=== PATIENT | female | born 1965 | race Hispanic/Latino ===

== ENCOUNTER 2022-01-25 16:04 | Emergency (ER) | payer MEDICARE ==
[~2022-01-25] VITALS: Ht 154.9 cm; Wt 66.4 kg
[2022-01-25 16:44] LABS: BASOPHILS % 0.3 % (0.0-1.0); EOSINOPHILS # (AUTO) 0.4 (0.0-0.4); HEMATOCRIT 32.9 % (34.2-44.1); HEMOGLOBIN 10.4 g/dL (12.0-16.0); LYMPHOCYTES # (AUTO) 2.8 (1.0-3.2); LYMPHOCYTES % 22.8 % (18.0-39.1); MEAN CORPUSCULAR HEMOGLOBIN 30.9 pg (28-32); MEAN CORPUSCULAR HGB CONC 31.6 g/dL (31-35); MEAN CORPUSCULAR VOLUME 97.6 fL (81-99); MONOCYTES % 8.4 % (4.4-11.3); NEUTROPHILS # (AUTO) 7.9 (2.1-6.9); NEUTROPHILS % 64.6 % (38.7-80.0); PLATELET COUNT 299 x10e3/uL (140-360); RED BLOOD COUNT 3.37 x10e6/uL (3.6-5.1); RED CELL DISTRIBUTION WIDTH 14.7 % (11.7-14.4)
[2022-01-25 16:53] LABS: INR 0.97; PARTIAL THROMBOPLASTIN TIME 27.9 seconds (23.8-35.5); PROTHROMBIN TIME 13.8 seconds (11.9-14.5)
[2022-01-25 16:59] LABS: ALBUMIN 2.3 g/dL (3.5-5.0); ALBUMIN/GLOBULIN RATIO 0.5 (0.8-2.0); ANION GAP 17.2 mmol/L (8-16); CALCIUM 7.6 mg/dL (8.4-10.2); CREATININE, SERUM 5.43 mg/dL (0.57-1.11); POTASSIUM 5.2 mmol/L (3.5-5.1)
[2022-01-25 17:00] LABS: AMYLASE 45 U/L (25-125); LIPASE 37 U/L (8-78)
[2022-01-25] MEDS ORDERED: AUGMENTIN 500-1 EACH PO (18:04)
[2022-01-25] MEDS ORDERED: ULTRAM 50MG50 MG PO (18:04)
[2022-01-25 18:23] LABS: CLARITY,URINE CLOUDY (CLEAR); COLOR,URINE YELLOW (YELLOW); KETONES,URINE NEGATIVE (NEGATIVE); LEUKOCYTE ESTERASE ,URINE SMALL (NEGATIVE); NITRITE,URINE NEGATIVE (NEGATIVE); PROTEIN,URINE DIPSTICK >=300 (NEGATIVE); URINE UROBILINOGEN 0.2 mg/dL (0.2 - 1)
[2022-01-25 18:32] LABS: BACTERIA,URINE MANY /HPF; EPITHELIAL CELLS,URINE FEW /LPF; RBC,URINE 0-5 /HPF (0-5)
== END 2022-01-25 18:17 | disposition home or self-care (01) ==
LOC: EDBD 16:43 → ER 16:43
DX: R10.11 Right upper quadrant pain (principal); I10 Essential (primary) hypertension; E11.9 Type 2 diabetes mellitus without complications; Z88.6 Allergy status to analgesic agent; Z20.822 Contact with and (suspected) exposure to COVID-19
CPT/HCPCS: 36415; 71045; 74176; 80053; 81001; 82150; 83690; 85025; 85610; 85730; 87040; 99283; J2543; U0002